=== PATIENT | female | born 1995 | race Caucasian/White ===

== ENCOUNTER 2022-03-04 17:55 | Emergency (ER) | payer SELFPAY ==
[~2022-03-04] VITALS: Ht 167.6 cm; Wt 65.9 kg
[2022-03-04 17:59] VITALS: TEMP 98.4
[2022-03-04 20:45] VITALS: BP 103/69; PULSE 69
== END 2022-03-04 20:49 | disposition home or self-care (01) ==
LOC: COL.ER 17:55
DX: S43.402A Unspecified sprain of left shoulder joint, initial encounter (principal); S09.90XA Unspecified injury of head, initial encounter; Z28.310 Unvaccinated for COVID-19; V89.2XXA Person injured in unspecified motor-vehicle accident, traffic, initial encounter; Y92.410 Unspecified street and highway as the place of occurrence of the external cause
CPT/HCPCS: J1885; J2405